=== PATIENT | female | born 1950 | race Two or more races ===

== ENCOUNTER → 2019-05-21 | Emergency (ER) | payer OTHER ==
[~2019-05-21] VITALS: Ht 160 cm; Wt 74.8 kg
[~2019-05-21] MED LIST: ALEVE220 MG PO; CATAPRES0.1 MG PO; DURICEF500 MG PO; HYDROCHLOROTHIA25 MG; HYDROCHLOROTHIA25 MG PO; LISINOPRIL20 MG PO; PERCOCET 5/3251 TAB PO; VASOTEC10 MG NGT; VASOTEC5 MG; ZITHROMAX500 MG PO
== END | disposition home or self-care (01) ==
LOC: ER 22:15
DX: B34.9 Viral infection, unspecified (principal)

== ENCOUNTER 2019-08-19 11:50 | Outpatient (CLI) | payer OTHER | END 2019-08-19 15:00 | disposition home or self-care (01) | LOC: LAB 11:50 | DX: Z20.828 Contact with and (suspected) exposure to other viral communicable diseases (principal); R05 Cough; R06.02 Shortness of breath; R50.9 Fever, unspecified ==

== ENCOUNTER 2019-09-29 07:18 | Outpatient (CLI) | payer OTHER | END 2019-09-29 07:20 | disposition home or self-care (01) | LOC: NUCLEAR 07:18 | PROVIDERS: ATTEND Internal Medicine Cardiovascular Disease | DX: R94.31 Abnormal electrocardiogram [ECG] [EKG] (principal); I50.20 Unspecified systolic (congestive) heart failure | CPT/HCPCS: 78452; 93017; A9500; J0153 ==

== ENCOUNTER 2020-02-05 09:47 | Emergency (ER) | payer OTHER ==
[~2020-02-05] VITALS: Ht 157.5 cm; Wt 76.7 kg
[2020-02-05] MEDS ORDERED: ZYRTEC10 M3 PO (11:03)
[2020-02-05] MEDS ORDERED: MUPIROCIN22 GM TOP (11:03)
== END 2020-02-05 11:17 | disposition home or self-care (01) ==
LOC: ER 09:47
DX: S91.352S Open bite, left foot, sequela (principal); W55.01XS Bitten by cat, sequela

== ENCOUNTER 2020-10-19 13:45 | Emergency (ER) | payer OTHER ==
[~2020-10-19] VITALS: Ht 160 cm; Wt 74.8 kg
[~2020-10-19 13:45] MED LIST changes: +MUPIROCIN22 GM TOP; +ZYRTEC10 M3 PO
[2020-10-19] MEDS ORDERED: DAFLONEX-XL 11300 MG (14:31)
[2020-10-19] MEDS ORDERED: CRESTOR5 MG (14:31)
[2020-10-19] MEDS ORDERED: ALLERGY RELIE15.8 ML (14:32)
[2020-10-19] MEDS ORDERED: FLOVENT DISKU100 MCG (14:32)
[2020-10-19] MEDS ORDERED: CLARITIN10 M2 (14:32)
[2020-12-19] MEDS ORDERED: CIPRO500 MG PO (21:53)
[2020-12-19] MEDS ORDERED: PEPCID AC20 MG PO (21:53)
== END 2020-10-19 19:12 | disposition home or self-care (01) ==
LOC: ER 13:45
DX: J45.998 Other asthma (principal); B34.9 Viral infection, unspecified; Z11.52 Encounter for screening for COVID-19

== ENCOUNTER → 2020-12-19 | Emergency (ER) | payer OTHER ==
[~2020-12-19] VITALS: Ht 160 cm; Wt 74.4 kg
[~2020-12-19] MED LIST changes: +ALLERGY RELIE15.8 ML; +CIPRO500 MG PO; +CLARITIN10 M2; +CRESTOR5 MG; +DAFLONEX-XL 11300 MG; +FLOVENT DISKU100 MCG; +PEPCID AC20 MG PO
== END | disposition home or self-care (01) ==
LOC: ER 15:11
DX: K52.9 Noninfective gastroenteritis and colitis, unspecified (principal)

== ENCOUNTER 2021-01-21 08:00 | Outpatient (CLI) | payer OTHER | END 2021-01-21 08:30 | disposition home or self-care (01) | LOC: PPH VACUNA 08:00 | PROVIDERS: ATTEND Emergency Medicine Pediatric Emergency Medicine | DX: Z23 Encounter for immunization (principal) ==

== ENCOUNTER 2021-05-27 08:34 | Outpatient (CLI) | payer OTHER | END 2021-05-27 08:43 | disposition home or self-care (01) | LOC: RAD 08:34 | PROVIDERS: ATTEND Specialist | DX: J45.998 Other asthma (principal) ==

== ENCOUNTER 2021-08-04 14:04 | Emergency (ER) | payer OTHER ==
[~2021-08-04] VITALS: Ht 160 cm; Wt 72.6 kg
[2021-08-04] MEDS ORDERED: ADULT LOW DOSE81 M1 PO (15:18)
[2021-08-04] MEDS ORDERED: FLOVENT HFA12 GM (15:19)
[2021-08-04] MEDS ORDERED: PROAIR RESPICL90 MCG (15:19)
[2021-08-04] MEDS ORDERED: LIPITOR20 MG PO (15:20)
[2021-08-04] MEDS ORDERED: METFORMIN HCL500 M3 PO (15:20)
[2021-08-04] MEDS ORDERED: AVAPRO75 MG PO (15:20)
[2021-08-04] MEDS ORDERED: MUCINEX DM ER1 EAC1 PO (18:53)
[2021-08-04] MEDS ORDERED: ZYRTEC10 MG PO (18:53)
[2021-08-04] MEDS ORDERED: VITAMIN C WIT1000 MG PO (18:53)
[2021-08-04] MEDS ORDERED: ACETAMINOPHEN650 M2 PO (18:53)
== END 2021-08-04 19:01 | disposition home or self-care (01) ==
LOC: ER 14:04
DX: J06.9 Acute upper respiratory infection, unspecified (principal); Z79.82 Long term (current) use of aspirin; Z79.84 Long term (current) use of oral hypoglycemic drugs; Z20.822 Contact with and (suspected) exposure to COVID-19

== ENCOUNTER 2021-09-10 10:00 | Outpatient (CLI) | payer OTHER ==
[~2021-09-10 10:00] MED LIST changes: +ACETAMINOPHEN650 M2 PO; +ADULT LOW DOSE81 M1 PO; +AVAPRO75 MG PO; +FLOVENT HFA12 GM; +LIPITOR20 MG PO; +METFORMIN HCL500 M3 PO; +MUCINEX DM ER1 EAC1 PO; +PROAIR RESPICL90 MCG; +VITAMIN C WIT1000 MG PO; +ZYRTEC10 MG PO
== END 2021-09-10 10:10 | disposition home or self-care (01) ==
LOC: PPH VACUNA 10:00
PROVIDERS: ATTEND Emergency Medicine Pediatric Emergency Medicine
DX: Z23 Encounter for immunization (principal)

== ENCOUNTER → 2022-02-05 07:49 | Outpatient (CLI) | payer OTHER | END | disposition home or self-care (01) | LOC: SONOGRAMA 07:49 | PROVIDERS: ATTEND Specialist | DX: I12.9 Hypertensive chronic kidney disease with stage 1 through stage 4 chronic kidney disease, or unspecified chronic kidney disease (principal); J01.20 Acute ethmoidal sinusitis, unspecified ==

== ENCOUNTER 2022-04-08 10:35 | Outpatient (CLI) | payer OTHER | END 2022-04-08 10:43 | disposition home or self-care (01) | LOC: LAB 10:35 → EKG 10:35 → LAB 10:43 | PROVIDERS: ATTEND Ophthalmology | DX: I10 Essential (primary) hypertension (principal); I11.9 Hypertensive heart disease without heart failure; Z98.41 Cataract extraction status, right eye; H25.011 Cortical age-related cataract, right eye ==

== ENCOUNTER 2022-05-18 11:37 | Outpatient (CLI) | payer OTHER | END 2022-05-18 11:41 | disposition home or self-care (01) | LOC: EKG 11:37 | PROVIDERS: ATTEND Ophthalmology | DX: I11.9 Hypertensive heart disease without heart failure (principal) ==

== ENCOUNTER 2022-06-06 13:36 | Emergency (ER) | payer OTHER ==
[~2022-06-06] VITALS: Ht 160 cm; Wt 73.9 kg
[2022-06-06] MEDS ORDERED: AVAPRO150 MG PO (14:13)
== END 2022-06-06 18:32 | disposition home or self-care (01) ==
LOC: ER 13:36
DX: J45.901 Unspecified asthma with (acute) exacerbation (principal); I10 Essential (primary) hypertension; E11.9 Type 2 diabetes mellitus without complications; Z79.84 Long term (current) use of oral hypoglycemic drugs; Z20.822 Contact with and (suspected) exposure to COVID-19

== ENCOUNTER → 2023-02-11 | Outpatient (CLI) | payer OTHER ==
[~2023-02-11] MED LIST changes: +AVAPRO150 MG PO
== END | disposition home or self-care (01) ==
LOC: MAMO 607 08:28 → MAMO-SONO 08:28
PROVIDERS: ATTEND Specialist
DX: Z12.39 Encounter for other screening for malignant neoplasm of breast (principal); Z12.31 Encounter for screening mammogram for malignant neoplasm of breast

== ENCOUNTER 2023-05-12 09:36 | Emergency (ER) | payer OTHER ==
[~2023-05-12] VITALS: Ht 160 cm; Wt 61.2 kg
[2023-05-12] MEDS ORDERED: CYCLOBENZAPRINE10 MG PO (13:05)
[2023-05-12] MEDS ORDERED: CELEBREX200MG PO (13:05)
== END 2023-05-12 14:50 | disposition home or self-care (01) ==
LOC: ER 09:37
DX: M54.41 Lumbago with sciatica, right side (principal)
CPT/HCPCS: 96372; 99283; J1885; J2360

== ENCOUNTER 2023-06-16 09:38 | Outpatient (CLI) | payer OTHER ==
[~2023-06-16 09:38] MED LIST changes: +CELEBREX200MG PO; +CYCLOBENZAPRINE10 MG PO
== END 2023-06-16 09:41 | disposition home or self-care (01) ==
LOC: RAD 09:38
PROVIDERS: ATTEND Specialist
DX: J45.991 Cough variant asthma (principal)

== ENCOUNTER 2024-03-05 15:17 | Emergency (ER) | payer OTHER ==
[~2024-03-05] VITALS: Ht 160 cm; Wt 72.1 kg
[2024-03-05] MEDS ORDERED: SERTRALINE20 MG/1 ML PO (16:46)
[2024-03-05] MEDS ORDERED: DEXAMETHASONE SODIUM PHOSPHATE 4 MG/ML VIAL IM STA (18:02)
[2024-03-05] MEDS ORDERED: ORPHENADRINE CITRATE 30 MG/ML AMPUL IM STA (18:03)
[2024-03-05] MEDS ORDERED: NORFLEX100MG PO (18:05)
== END 2024-03-05 19:09 | disposition home or self-care (01) ==
LOC: ER 15:19
DX: M25.569 Pain in unspecified knee (principal); E11.9 Type 2 diabetes mellitus without complications; Z79.84 Long term (current) use of oral hypoglycemic drugs
CPT/HCPCS: 96372; 99282; J1100; J2360

== ENCOUNTER 2024-05-26 14:12 | Emergency (ER) | payer OTHER ==
[~2024-05-26] VITALS: Ht 160 cm; Wt 72.1 kg
[~2024-05-26 14:12] MED LIST changes: +NORFLEX100MG PO; +SERTRALINE20 MG/1 ML PO
[2024-05-26] MEDS ORDERED: KETOROLAC TROMETHAMINE 60 MG VIAL IM STA (15:59)
[2024-05-26] MEDS ORDERED: KETOROLAC TROMETHAMINE 60 MG VIAL IM ONE (16:10)
[2024-05-26 16:16] LABS: ERYTHROCYTE SEDIMENTATION RATE 12 mm/hr
[2024-05-26 16:18] LABS: HEMATOCRIT 42.3 % (36.0-45.00); HEMOGLOBIN 14.2 g/dL (12.0-15.00); MEAN CELL VOLUME 89.9 fL (80.00-100.00); MEAN CORPUSCULAR HEMOGLOBIN 30.2 pg (27.00-32.0); MEAN CORPUSCULAR HGB CONC 33.6 g/dl (32.0-36.0); PLATELET COUNT 218 K/uL (150-450); RED BLOOD COUNT 4.71 M/uL (4.00-6.00); RED CELL DISTRIBUTION WIDTH 13.6 % (11.5-14.5)
[2024-05-26 16:38] LABS: ANION GAP 6 (10.0-20.0); BLOOD UREA NITROGEN 14 mg/dL (7-18); BUN CREA RATIO 19 (7.0-25.0); CALCIUM 9.6 mg/dL (8.5-10.1); CARBON DIOXIDE 30 mEq/L (21-32); CHLORIDE 113 mmol/L (98-107); CREATININE SERUM 0.72 mg/dL (0.55-1.02); GFR 79.62; GLUCOSE FASTING 92 mg/dL (65-100); OSMOLALITY SERUM 289 MOSM/KG (275-295); POTASSIUM 4.49 mEq/L (3.5-5.1); SODIUM 145 mmol/L (136-145)
[2024-05-26 16:43] LABS: C-REACTIVE PROTEIN < 0.29 MG/DL (0.00-0.29)
== END 2024-05-26 17:18 | disposition home or self-care (01) ==
LOC: ER 14:15
PROVIDERS: General Practice
DX: M25.551 Pain in right hip (principal); M25.511 Pain in right shoulder; M25.561 Pain in right knee; E88.810 Metabolic syndrome; I10 Essential (primary) hypertension; J45.909 Unspecified asthma, uncomplicated; E11.9 Type 2 diabetes mellitus without complications; Z79.84 Long term (current) use of oral hypoglycemic drugs
CPT/HCPCS: 70450; 73030; 73501; 73560; 96372; 99284; J1885

== ENCOUNTER 2024-07-24 12:51 | Outpatient (CLI) | payer OTHER | END 2024-07-24 12:53 | disposition home or self-care (01) | LOC: RAD 12:51 | PROVIDERS: ATTEND Specialist | DX: J45.998 Other asthma (principal) ==

== ENCOUNTER 2025-01-08 08:38 | Outpatient (CLI) | payer OTHER | END 2025-01-08 08:42 | disposition home or self-care (01) | LOC: MAMO-SONO 08:38 | PROVIDERS: ATTEND Specialist | DX: N60.39 Fibrosclerosis of unspecified breast (principal); Z12.39 Encounter for other screening for malignant neoplasm of breast; Z12.31 Encounter for screening mammogram for malignant neoplasm of breast ==

== ENCOUNTER 2025-02-16 20:12 | Emergency (ER) | payer OTHER ==
[~2025-02-16] VITALS: Ht 160 cm; Wt 71.7 kg
[2025-02-16] MEDS ORDERED: KETOROLAC TROMETHAMINE 30 MG VIAL IM STA (20:40)
[2025-02-16] MEDS ORDERED: KETOROLAC TROMETHAMINE 30 MG VIAL ONE (20:41)
== END 2025-02-16 22:00 | disposition home or self-care (01) ==
LOC: ER 20:12
DX: S69.82XA Other specified injuries of left wrist, hand and finger(s), initial encounter (principal); S59.812A Other specified injuries left forearm, initial encounter; W19.XXXA Unspecified fall, initial encounter; Y93.89 Activity, other specified; Y92.89 Other specified places as the place of occurrence of the external cause; Y99.8 Other external cause status; M25.532 Pain in left wrist
CPT/HCPCS: 29125; 73090; 73110; 96372; 99283; J1885